=== PATIENT | female | born 1955 | race Caucasian/White ===

== ENCOUNTER 2016-12-02 09:55 | Day surgery (SDC) | payer OTHER ==
[~2016-12-02 09:55] MED LIST: Acetaminophen TAB* 325 MG PO PRN; Buffered Lidocaine 0.9% SYRIN* 5 ML/SYR SYRINGE INTRADERM ONE
[2016-12-02] MEDS ORDERED: Midazolam* 1 MG/ML 2 ML VIAL (2 MG) ONE (11:03)
[2016-12-02] MEDS ORDERED: fentaNYL* 50 MCG/ML 2 ML VIAL (100 MCG VIAL) ONE (11:03)
[2016-12-02 12:46] VITALS: BP 117/73
[2016-12-02] MEDS ORDERED: Neomycin/Polymy/Dex OPHTH.OIN* 3.5 GM ONE (14:46)
[2016-12-02] MEDS ORDERED: Phenylephrine 2.5% OPTH.SOL* 2 ML BTL ONE (14:46)
[2016-12-02] MEDS ORDERED: acetaZOLAMIDE TAB* 250 MG ONE (14:46)
[2016-12-02] MEDS ORDERED: Tropicamide 1% OPTH.SOL* BTL ONE (14:46)
[2016-12-02] MEDS ORDERED: Lidocaine 1% MPF* 2 ML VIAL ONE (14:46)
[2016-12-02] MEDS ORDERED: Flurbiprofen 0.03% OPTH.SOL* 2.5 ML BTL ONE (14:46)
[2016-12-02] MEDS ORDERED: Tetracaine 0.5% OPTH.SOL 4 ML* 1 DROP BTL ONE (14:46)
[2016-12-02] MEDS ORDERED: Povidone Iodine 5% OPTH* 30 ML BTL ONE (14:46)
[2016-12-02] MEDS ORDERED: Buffered Lidocaine 0.9% SYRIN* 5 ML/SYR SYRINGE ONE (14:46)
[2016-12-02] MEDS ORDERED: Cyclopentolate 1% OPTH.SOL* 2 ML BTL ONE (14:46)
--- NOTE | 2016-12-02 23:40 | OP ---
DATE OF OPERATION: 12/02/16 - [facility] DATE OF : 55 SURGEON: Diallo Cruz MD ANESTHESIOLOGIST: Keron Brady MD ANESTHESIA: Monitored anesthesia care. PRE-OP DIAGNOSIS: Cataract of the left eye with astigmatism. POST-OP DIAGNOSIS: Cataract of the left eye with astigmatism. OPERATIVE PROCEDURE: Cataract surgery of the left eye. IMPLANTS: SN6AT8 17.5 diopter lens at the 104 degrees to the left eye. COMPLICATIONS: None. DESCRIPTION OF PROCEDURE: The patient was given phenylephrine 2.5% and cyclopentolate 1% eye drops to the operative eye in the preoperative area. Preoperative corneal markings were made in the preoperative area to assist with Toric lens placement. The patient was brought to the operating room, where a time- out was taken to identify the correct patient, site, and side of surgery. The patient's left eye was prepped and draped in the usual sterile fashion with 5% Betadine. A second time-out was taken to verify the correct patient, site, and side of surgery, and correct lens selection. A lid speculum was placed to the left eye. A corneal marking at 104 degrees was placed with the aid of a Bryant degree marker. A 1-mm paracentesis blade was used to make a clear corneal incision in the inferotemporal position. Preservative-free 1% lidocaine was injected into the anterior chamber. DisCoVisc was then injected into the anterior chamber. A 2.75- mm keratome blade was used to make a triplanar incision at the superotemporal position. A cystotome initiated a capsulorrhexis, which was completed with Utrata forceps in a continuous and curvilinear manner. Hydrodissection of the lens was performed with BSS on a cannula. The lens could be spun in the capsular bag. The phacoemulsification handpiece was used with a [id number]-[id number]-ybrosoq technique to remove the nucleus in its entirety. The I/A handpiece then removed the residual cortical lens material. DisCoVisc was injected to inflate the capsular bag. The planned SN6AT8 17.5 diopter lens was then injected into the capsular bag and rotated to 104 degrees. The residual DisCoVisc was removed from the eye with the I/A handpiece. Again, the lens was confirmed to be at the 104-degree position. The corneal incisions were hydrated and no leaks occurred at physiologic pressure around 20 mmHg per palpation. The lid speculum was removed and drapes removed. Maxitrol ointment was placed to the surface of the operative eye. An adhesive patch and shield was then placed to the operative eye. The patient was taken to the postoperative area in stable condition. [id number]/[facility] #: [id number] MTDEddie
== END 2016-12-02 12:45 | disposition home or self-care (01) ==
LOC: OREAST 09:55
PROVIDERS: ATTEND Student in an Organized Health Care Education/Training Program
DX: H25.13 Age-related nuclear cataract, bilateral (principal); H52.202 Unspecified astigmatism, left eye; E03.9 Hypothyroidism, unspecified; M25.579 Pain in unspecified ankle and joints of unspecified foot; E66.3 Overweight; Z88.0 Allergy status to penicillin; Z68.42 Body mass index [BMI] 45.0-49.9, adult
CPT/HCPCS: A9270-GY; J2250; J3010; V2787

== ENCOUNTER 2016-12-09 07:09 | Day surgery (SDC) | payer OTHER ==
[2016-12-09] MEDS ORDERED: fentaNYL* 50 MCG/ML 2 ML VIAL (100 MCG VIAL) ONE (08:03)
[2016-12-09] MEDS ORDERED: Midazolam* 1 MG/ML 2 ML VIAL (2 MG) ONE ×2 (08:06→08:16)
[2016-12-09 08:55] VITALS: BP 140/66
--- NOTE | 2016-12-09 13:37 | OP ---
DATE OF OPERATION: 12/09/16 - [facility] DATE OF : 55 SURGEON: Diallo Cruz MD ANESTHESIOLOGIST: Keron Brady MD ANESTHESIA: Monitored anesthesia care. PRE-OP DIAGNOSIS: Cataract of the right eye. POST-OP DIAGNOSIS: Cataract of the right eye. OPERATIVE PROCEDURE: Cataract surgery of the right eye. IMPLANTS: SN60WF 19.0 diopter lens to the right eye. COMPLICATIONS: None. DESCRIPTION OF PROCEDURE: The patient was given phenylephrine 2.5% and cyclopentolate 1% eye drops to the operative eye in the preoperative area. The patient was brought to the operating room, where a time-out was taken to identify the correct patient, site, and side of surgery. The patient's right eye was prepped and draped in the usual sterile fashion with 5% Betadine. A second time- out was taken to verify the correct patient, site, and side of surgery and correct lens selection. A lid speculum was placed to the right eye. A 1-mm paracentesis blade was used to make a clear corneal incision in the superotemporal position. Preservative-free 1% lidocaine was injected into the anterior chamber. DisCoVisc was then injected into the anterior chamber. A 2.75-mm keratome blade was used to make a triplanar incision at the inferotemporal position. A cystotome initiated a capsulorrhexis, which was completed with Utrata forceps in a continuous and curvilineal manner. Hydrodissection of the lens was performed with BSS on a cannula. The lens could be spun in the capsular bag. The phacoemulsification handpiece was used with a [id number]-mqa-qflvqpw technique to remove the nucleus in its entirety with 18.91 CDE. The I/A handpiece then removed the residual cortical lens material. DisCoVisc was injected to inflate the capsular bag. The planned SN60WF 19.0 diopter lens was injected into the capsular bag. The residual DisCoVisc was removed from the eye with the I/A handpiece. The corneal incisions were hydrated and no leaks occurred at physiologic pressure around 20 mmHg per palpation. The lid speculum was removed and drapes removed. Maxitrol ointment was placed to the surface of the operative eye. An adhesive patch and shield was then placed on the operative eye. The patient was taken to the postoperative area in stable condition. [id number]/[facility] #: [id number] MTDEddie
[2016-12-09] MEDS ORDERED: Flurbiprofen 0.03% OPTH.SOL* 2.5 ML BTL ONE (15:39)
[2016-12-09] MEDS ORDERED: Cyclopentolate 1% OPTH.SOL* 2 ML BTL ONE (15:39)
[2016-12-09] MEDS ORDERED: Tetracaine 0.5% OPTH.SOL 4 ML* 1 DROP BTL ONE (15:39)
[2016-12-09] MEDS ORDERED: Phenylephrine 2.5% OPTH.SOL* 2 ML BTL ONE (15:39)
[2016-12-09] MEDS ORDERED: Tropicamide 1% OPTH.SOL* BTL ONE (15:39)
[2016-12-09] MEDS ORDERED: acetaZOLAMIDE TAB* 250 MG ONE (15:39)
[2016-12-09] MEDS ORDERED: Povidone Iodine 5% OPTH* 30 ML BTL ONE (15:39)
[2016-12-09] MEDS ORDERED: Neomycin/Polymy/Dex OPHTH.OIN* 3.5 GM ONE (15:39)
[2016-12-09] MEDS ORDERED: Buffered Lidocaine 0.9% SYRIN* 5 ML/SYR SYRINGE ONE (15:39)
[2016-12-09] MEDS ORDERED: Lidocaine 1% MPF* 2 ML VIAL ONE (15:39)
[2016-12-09] MEDS ORDERED: Ketorolac 0.5% OPHTH (NF) 0.5 % 5 ML BTL ONE (15:40)
== END 2016-12-09 08:57 | disposition home or self-care (01) ==
LOC: OREAST 07:09
PROVIDERS: ATTEND Student in an Organized Health Care Education/Training Program
DX: H25.11 Age-related nuclear cataract, right eye (principal); M25.579 Pain in unspecified ankle and joints of unspecified foot; E03.9 Hypothyroidism, unspecified; Z88.0 Allergy status to penicillin
CPT/HCPCS: A9270-GY; J2250; J3010; V2632